=== PATIENT | male | born 1940 | race African-American/Black ===

== ENCOUNTER 2020-07-31 05:47 | Inpatient (IN) ==
[2020-07-31] MEDS ORDERED: LACTATED RINGERS 1,000 ML IV SCH (06:00)
[2020-07-31] MEDS ORDERED: cefTRIAXone 1,000 MG in SYRINGE 1 EACH IV ONE (06:30)
[2020-07-31 06:39] LABS: Basophils % 0.3 % (0.0-0.8); Eosinophils # 0.1 10*3/uL (0.0-0.87); Eosinophils % 0.7 % (0.00-10.9); Hemoglobin 14.9 GM/DL (14.0-18.0); Immature Granulocytes % 0.4 %; Immature Granulocytes Absolute 0.06 #; Lymphocytes # 1.2 10*3/uL (1.4-4.0); Lymphocytes % 7.7 % (21.2-54.2); Mean Corpuscular HGB Conc 33.9 GM/DL (32-36); Mean Corpuscular Volume 98.7 FL (87-102); Mean Platelet Volume 10.1 FL (9.6-12.0); Monocytes % 7.4 % (1.7-12.7); Neutrophils % 83.5 % (38.7-73.9); Platelet Count 165 T/CUMM (130-400); Red Blood Count 4.46 MC/CUMM (3.8-5.5); Red Cell Distribution Width 13.8 % (9.3-17.3); White Blood Count 15.1 T/CUMM (4-12)
[2020-07-31] MEDS ORDERED: MIDAZOLAM 2 MG/2 ML VIAL ONE (06:40)
[2020-07-31] MEDS ORDERED: propofoL 200 MG/20 ML VIAL IV ONE ×2 (06:40→07:40)
[2020-07-31] MEDS ORDERED: fentaNYL 100 MCG/2 ML VIAL ONE ×2 (06:40→08:00)
[2020-07-31] MEDS ORDERED: SEVOFLURANE 1 UNIT/15 MINUTE INH ONE (06:40)
[2020-07-31] MEDS ORDERED: LIDOCAINE 2% 5 ML VIAL ONE (06:40)
[2020-07-31] MEDS ORDERED: ETOMIDATE 40 MG/20 ML VIAL IV ONE (06:40)
[2020-07-31 07:04] LABS: Bilirubin,Total 1.8 MG/DL (0.2-1.0); Calcium 9.1 MG/DL (8.5-10.1); Osmolality,Calculated 273.8 MOS/KG (273-304); Potassium 3.3 MMOL/L (3.5-5.1); Total Protein 7.8 G/DL (5.0-7.5)
[2020-07-31] MEDS ORDERED: SUCCINYLCHOLINE 200 MG/10 ML VIAL ONE (07:31)
[2020-07-31] MEDS ORDERED: ONDANSETRON 4 MG/2 ML VIAL ONE (07:32)
[2020-07-31] MEDS ORDERED: PHENYLEPHRINE 1 MG/10 ML SYRINGE IV ONE (07:34)
[2020-07-31] MEDS ORDERED: ESMOLOL 100 MG/10 ML VIAL IV ONE (07:45)
[2020-07-31] MEDS ORDERED: LACTATED RINGERS 1,000 ML IV ONE (08:01)
[2020-07-31] MEDS ORDERED: ONDANSETRON 4 MG/2 ML VIAL IV PRN (08:13)
[2020-07-31] MEDS ORDERED: HYDROmorphone 2 MG/1 ML VIAL IV PRN (08:13)
[2020-07-31] MEDS ORDERED: PROMETHAZINE 25 MG/1 ML VIAL IM PRN (08:13)
[2020-07-31] MEDS ORDERED: LACTULOSE 20 GM/30 ML UDCUP PO PRN (08:13)
[2020-07-31] MEDS ORDERED: diphenhydrAMINE 50 MG/1 ML VIAL IV PRN (08:17)
[2020-07-31] MEDS ORDERED: oxyCODONE/ACETAMINOPHEN 5-325 MG TABLET PO PRN (08:18)
[2020-07-31 09:11] LABS: Calcium 8.8 MG/DL (8.5-10.1); Osmolality,Calculated 269.2 MOS/KG (273-304); Potassium 3.5 MMOL/L (3.5-5.1)
[2020-07-31] MEDS ORDERED: PHENOL 1.4% THROAT SPRAY 177 ML BOTTLE PO STA (12:03)
[2020-07-31] MEDS: DOCUSATE SODIUM 100 MG CAPSULE PO SCH ×2 (15:02→21:38)
[2020-07-31] MEDS: DORZOLAMIDE/TIMOLOL OPH SOLN 10 ML BOTTLE BOTH EYES SCH ×2 (15:02→21:39)
[2020-07-31] MEDS: ACETAMINOPHEN 325 MG TABLET PO SCH ×3 (15:02→21:39)
[2020-07-31] MEDS: OXYBUTYNIN 5 MG TABLET PO SCH ×3 (15:03→21:39)
[2020-07-31] MEDS: POTASSIUM CHLORIDE 10 MEQ TABLET PO SCH ×2 (15:03→21:39)
[2020-07-31] MEDS: MEMANTINE 10 MG TABLET PO SCH ×2 (15:03→21:39)
[2020-07-31] MEDS: SODIUM CHLOR 0.9% KCL 20 MEQ 20 MEQ/1,000 ML BAG IV SCH (15:39)
[2020-07-31] MEDS: amLODIPine 10 MG TABLET PO SCH (16:35)
[2020-07-31] MEDS: METOPROLOL SUCCINATE XL 50 MG TABLET PO SCH (16:35)
[2020-07-31] MEDS: NETARSUDIL 0.02% BOTH EYES SCH (21:39)
[2020-07-31] MEDS: LATANOPROST 0.005% OPH SOLN 2.5 ML BOTTLE BOTH EYES SCH (22:12)
[2020-08-01] MEDS: SODIUM CHLOR 0.9% KCL 20 MEQ 20 MEQ/1,000 ML BAG IV SCH (02:05)
[2020-08-01] MEDS: ACETAMINOPHEN 325 MG TABLET PO SCH ×4 (02:06→21:28)
[2020-08-01] MEDS: cefTRIAXone 1,000 MG in SYRINGE 1 EACH IV SCH (05:54)
[2020-08-01 07:05] LABS: Basophils % 0.4 % (0.0-0.8); Eosinophils # 0.1 10*3/uL (0.0-0.87); Eosinophils % 1.5 % (0.00-10.9); Hematocrit 40.1 VOL% (42.0-52.0); Hemoglobin 13.2 GM/DL (14.0-18.0); Immature Granulocytes % 0.6 %; Immature Granulocytes Absolute 0.05 #; Lymphocytes # 1.3 10*3/uL (1.4-4.0); Mean Corpuscular HGB Conc 32.9 GM/DL (32-36); Mean Corpuscular Volume 100.5 FL (87-102); Monocytes % 8.7 % (1.7-12.7); Neutrophils % 73.8 % (38.7-73.9); Platelet Count 146 T/CUMM (130-400); Red Blood Count 3.99 MC/CUMM (3.8-5.5); Red Cell Distribution Width 13.6 % (9.3-17.3); White Blood Count 8.9 T/CUMM (4-12)
[2020-08-01 07:41] LABS: Calcium 8.4 MG/DL (8.5-10.1); Osmolality,Calculated 275.5 MOS/KG (273-304); Potassium 3.7 MMOL/L (3.5-5.1)
[2020-08-01] MEDS: PANTOPRAZOLE 40 MG TABLET PO SCH (09:07)
[2020-08-01] MEDS: MEMANTINE 10 MG TABLET PO SCH ×2 (09:08→21:29)
[2020-08-01] MEDS: amLODIPine 10 MG TABLET PO SCH (09:08)
[2020-08-01] MEDS: POTASSIUM CHLORIDE 10 MEQ TABLET PO SCH ×2 (09:08→21:29)
[2020-08-01] MEDS: METOPROLOL SUCCINATE XL 50 MG TABLET PO SCH (09:08)
[2020-08-01] MEDS: DOCUSATE SODIUM 100 MG CAPSULE PO SCH ×2 (09:08→21:29)
[2020-08-01] MEDS: OXYBUTYNIN 5 MG TABLET PO SCH ×3 (09:08→21:29)
[2020-08-01] MEDS: DORZOLAMIDE/TIMOLOL OPH SOLN 10 ML BOTTLE BOTH EYES SCH ×2 (09:10→21:28)
[2020-08-01] MEDS: NETARSUDIL 0.02% BOTH EYES SCH (21:28)
[2020-08-01] MEDS: LATANOPROST 0.005% OPH SOLN 2.5 ML BOTTLE BOTH EYES SCH (21:29)
[2020-08-02] MEDS: ACETAMINOPHEN 325 MG TABLET PO SCH ×4 (02:49→21:18)
[2020-08-02] MEDS: cefTRIAXone 1,000 MG in SYRINGE 1 EACH IV SCH (05:45)
[2020-08-02 06:12] LABS: Basophils % 0.5 % (0.0-0.8); Eosinophils # 0.1 10*3/uL (0.0-0.87); Eosinophils % 1.6 % (0.00-10.9); Hematocrit 41.5 VOL% (42.0-52.0); Hemoglobin 13.9 GM/DL (14.0-18.0); Immature Granulocytes % 0.5 %; Immature Granulocytes Absolute 0.04 #; Lymphocytes # 1.2 10*3/uL (1.4-4.0); Lymphocytes % 14.7 % (21.2-54.2); Mean Corpuscular HGB Conc 33.5 GM/DL (32-36); Mean Corpuscular Volume 99.5 FL (87-102); Mean Platelet Volume 10.5 FL (9.6-12.0); Monocytes % 8.4 % (1.7-12.7); Neutrophils % 74.3 % (38.7-73.9); Platelet Count 149 T/CUMM (130-400); Red Blood Count 4.17 MC/CUMM (3.8-5.5); Red Cell Distribution Width 13.3 % (9.3-17.3)
[2020-08-02 06:36] LABS: Calcium 8.2 MG/DL (8.5-10.1); Osmolality,Calculated 273.7 MOS/KG (273-304); Potassium 3.6 MMOL/L (3.5-5.1)
[2020-08-02] MEDS: POTASSIUM CHLORIDE 10 MEQ TABLET PO SCH ×2 (08:36→21:17)
[2020-08-02] MEDS: METOPROLOL SUCCINATE XL 50 MG TABLET PO SCH (08:36)
[2020-08-02] MEDS: OXYBUTYNIN 5 MG TABLET PO SCH ×3 (08:37→21:20)
[2020-08-02] MEDS: amLODIPine 10 MG TABLET PO SCH (08:37)
[2020-08-02] MEDS: PANTOPRAZOLE 40 MG TABLET PO SCH (08:37)
[2020-08-02] MEDS: DOCUSATE SODIUM 100 MG CAPSULE PO SCH ×2 (08:37→21:18)
[2020-08-02] MEDS: DORZOLAMIDE/TIMOLOL OPH SOLN 10 ML BOTTLE BOTH EYES SCH ×2 (08:39→21:18)
[2020-08-02] MEDS: MEMANTINE 10 MG TABLET PO SCH ×2 (08:39→21:18)
[2020-08-02] MEDS: NETARSUDIL 0.02% BOTH EYES SCH (21:18)
[2020-08-02] MEDS: LATANOPROST 0.005% OPH SOLN 2.5 ML BOTTLE BOTH EYES SCH (21:19)
[2020-08-03] MEDS: ACETAMINOPHEN 325 MG TABLET PO SCH ×2 (01:43→09:14)
[2020-08-03 05:45] LABS: Basophils % 0.4 % (0.0-0.8); Eosinophils # 0.2 10*3/uL (0.0-0.87); Hematocrit 40.6 VOL% (42.0-52.0); Hemoglobin 13.5 GM/DL (14.0-18.0); Immature Granulocytes % 0.4 %; Immature Granulocytes Absolute 0.03 #; Lymphocytes # 1.3 10*3/uL (1.4-4.0); Lymphocytes % 17.2 % (21.2-54.2); Mean Corpuscular HGB Conc 33.3 GM/DL (32-36); Mean Corpuscular Volume 97.4 FL (87-102); Mean Platelet Volume 10.8 FL (9.6-12.0); Monocytes % 9.8 % (1.7-12.7); Neutrophils % 70.2 % (38.7-73.9); Platelet Count 158 T/CUMM (130-400); Red Blood Count 4.17 MC/CUMM (3.8-5.5); Red Cell Distribution Width 13.4 % (9.3-17.3); White Blood Count 7.5 T/CUMM (4-12)
[2020-08-03 06:00] LABS: Calcium 8.7 MG/DL (8.5-10.1); Osmolality,Calculated 270.8 MOS/KG (273-304); Potassium 3.5 MMOL/L (3.5-5.1)
[2020-08-03] MEDS: cefTRIAXone 1,000 MG in SYRINGE 1 EACH IV SCH (06:30)
[2020-08-03] MEDS: POTASSIUM CHLORIDE 10 MEQ TABLET PO SCH (09:13)
[2020-08-03] MEDS: MEMANTINE 10 MG TABLET PO SCH (09:13)
[2020-08-03] MEDS: DOCUSATE SODIUM 100 MG CAPSULE PO SCH (09:14)
[2020-08-03] MEDS: PANTOPRAZOLE 40 MG TABLET PO SCH (09:14)
[2020-08-03] MEDS: METOPROLOL SUCCINATE XL 50 MG TABLET PO SCH (09:14)
[2020-08-03] MEDS: OXYBUTYNIN 5 MG TABLET PO SCH (09:14)
[2020-08-03] MEDS: amLODIPine 10 MG TABLET PO SCH (09:14)
[2020-08-03] MEDS: DORZOLAMIDE/TIMOLOL OPH SOLN 10 ML BOTTLE BOTH EYES SCH (09:14)
[2020-08-03 12:17] VITALS: BP 115/76
== END 2020-08-03 13:45 | disposition home or self-care (01) | DRG 713 ==
LOC: N.OR 05:47 → N.SDSINP 05:49 → N.3E 14:34
PROVIDERS: ADMIT Surgery; ATTEND Surgery

== ENCOUNTER 2022-04-15 18:50 | Inpatient (IN) ==
[2022-04-15] MEDS ORDERED: ONDANSETRON 4 MG/2 ML VIAL IV STA ×2 (19:40)
[2022-04-15] MEDS ORDERED: SODIUM CHLORIDE 0.9% 1,000 ML IV STA (19:40)
[2022-04-15 20:51] LABS: Basophils % 0.2 % (0.0-0.8); Eosinophils % 0.1 % (0.00-10.9); Hemoglobin 17.2 GM/DL (14.0-18.0); Immature Granulocytes % 0.5 %; Immature Granulocytes Absolute 0.05 #; Lymphocytes # 0.6 10*3/uL (1.4-4.0); Lymphocytes % 5.3 % (21.2-54.2); Mean Corpuscular HGB Conc 34.4 GM/DL (32-36); Mean Corpuscular Volume 94.9 FL (87-102); Mean Platelet Volume 10.1 FL (9.6-12.0); Monocytes # 0.5 10*3/uL (0.11-0.8); Neutrophils % 88.9 % (38.7-73.9); Platelet Count 175 T/CUMM (130-400); Red Blood Count 5.27 MC/CUMM (3.8-5.5); Red Cell Distribution Width 13.3 % (9.3-17.3); White Blood Count 10.3 T/CUMM (4-12)
[2022-04-15 21:27] LABS: Bacteria,Urine Occasional /HPF (Few); RBC,Urine <1 /HPF (0-4); Urine Appearance Clear (Clear); Urine Color Yellow (Yellow); Urine Specific Gravity 1.015 (1.001-1.035)
[2022-04-15 21:28] LABS: Bilirubin,Urine Negative (Negative); Blood, Urine Negative (Negative); Glucose,Urine (UA) Negative (Negative); Ketones,Urine Negative (Negative); Nitrite,Urine Negative (Negative); Protein,Urine Negative (Negative)
[2022-04-15 21:59] LABS: Alanine Aminotransferase 131 U/L (16-61); Albumin 3.8 G/DL (3.4-5.0); Alkaline Phosphatase 199 U/L (45-117); Amylase > 1300 U/L (25-115); Aspartate Amino Transferase 384 U/L (0-37); Blood Urea Nitrogen 12 MG/DL (7-18); Calcium 9.4 MG/DL (8.5-10.1); Carbon Dioxide 26 MMOL/L (21-32); Chloride 102 MMOL/L (98-107); Glucose 130 MG/DL (74-106); Osmolality,Calculated 274.8 MOS/KG (273-304); Sodium 137 MMOL/L (136-145); Total Protein 7.6 G/DL (6.4-8.2)
[2022-04-16] MEDS ORDERED: MORPHINE 2 MG/1 ML SYRINGE IV STA (00:28)
[2022-04-16] MEDS ORDERED: ONDANSETRON 4 MG/2 ML VIAL IV ONE (00:28)
[2022-04-16] MEDS ORDERED: PIPERACILLIN/TAZOBACTAM 3,375 MG in SODIUM CHLORIDE 0.9% 100 ML IV STA (00:31)
[2022-04-16] MEDS ORDERED: diphenhydrAMINE CAP 25 MG CAPSULE PO PRN (00:50)
[2022-04-16] MEDS ORDERED: hydrALAZINE 20 MG/1 ML VIAL IV PRN (00:50)
[2022-04-16] MEDS ORDERED: ALBUTEROL/IPRATROPIUM 3 ML NEB RESP TX PRN (00:50)
[2022-04-16] MEDS ORDERED: ONDANSETRON 4 MG/2 ML VIAL IV PRN (00:50)
[2022-04-16] MEDS ORDERED: PROMETHAZINE 25 MG/1 ML VIAL IM PRN (00:50)
[2022-04-16] MEDS ORDERED: guaiFENesin/DM ER 600-30 MG TABLET PO PRN (00:50)
[2022-04-16] MEDS ORDERED: NICOTINE 21 MG/24 HR PATCH TRANSDERM PRN (00:50)
[2022-04-16] MEDS: DEXTROSE 5% NACL 0.9% 1,000 ML IV SCH ×2 (03:13→17:11)
[2022-04-16 04:39] LABS: Hepatitis B Core IgM Quant 0.05 Index; Hepatitis B Surface Ag Quant 0.18 Index; Hepatitis B Surface Ag Result Non-Reactive (NonReactive); Hepatitis C Virus Ab Quant 0.02 Index; Hepatitis C Virus Ab Result Non-Reactive (NonReactive)
[2022-04-16 06:25] LABS: Basophils % 0.1 % (0.0-0.8); Hemoglobin 16.7 GM/DL (14.0-18.0); Immature Granulocytes % 0.5 %; Immature Granulocytes Absolute 0.07 #; Lymphocytes # 0.6 10*3/uL (1.4-4.0); Lymphocytes % 4.4 % (21.2-54.2); Mean Corpuscular HGB Conc 34.1 GM/DL (32-36); Mean Platelet Volume 10.2 FL (9.6-12.0); Monocytes # 0.8 10*3/uL (0.11-0.8); Monocytes % 6.1 % (1.7-12.7); Neutrophils % 88.9 % (38.7-73.9); Platelet Count 163 T/CUMM (130-400); Red Blood Count 5.16 MC/CUMM (3.8-5.5); Red Cell Distribution Width 13.5 % (9.3-17.3); White Blood Count 12.9 T/CUMM (4-12)
[2022-04-16 06:35] LABS: INR 1.1; PT Patient Result 12.5 SECS (10.1-12.1); Partial Thromboplastin Time 30.1 SECS (23.7-32.9)
[2022-04-16 06:45] LABS: Albumin 3.2 G/DL (3.4-5.0); Bilirubin,Total 6.8 MG/DL (0.20-1.00); Calcium 8.9 MG/DL (8.5-10.1); Osmolality,Calculated 275.8 MOS/KG (273-304); Potassium 3.5 MMOL/L (3.5-5.1); Total Protein 7.2 G/DL (6.4-8.2)
[2022-04-16 06:47] LABS: Band Neutrophils 17 % (0-10); Lymphocytes 8 % (20-55); Total Cells Counted 100
[2022-04-16 06:48] LABS: Macrocytosis 1+; Platelet Estimate Normal
[2022-04-16] MEDS: FOLIC ACID 1 MG TABLET PO SCH ×2 (09:03→20:36)
[2022-04-16] MEDS: MULTIVITAMIN (CENTRUM) TABLET PO SCH (09:03)
[2022-04-16] MEDS: THIAMINE 100 MG TABLET PO SCH ×2 (09:03→20:36)
[2022-04-16] MEDS: PANTOPRAZOLE 40 MG VIAL IV SCH (09:08)
[2022-04-16] MEDS: PIPERACILLIN/TAZOBACTAM 3,375 MG in SODIUM CHLORIDE 0.9% 100 ML IV SCH ×2 (09:08→17:11)
[2022-04-17] MEDS: PIPERACILLIN/TAZOBACTAM 3,375 MG in SODIUM CHLORIDE 0.9% 100 ML IV SCH ×3 (01:15→16:11)
[2022-04-17 02:16] LABS: Basophils % 0.3 % (0.0-0.8); Eosinophils # 0.2 10*3/uL (0.0-0.87); Eosinophils % 1.5 % (0.00-10.9); Hematocrit 42.9 VOL% (42.0-52.0); Hemoglobin 14.8 GM/DL (14.0-18.0); Immature Granulocytes % 0.5 %; Immature Granulocytes Absolute 0.05 #; Lymphocytes # 0.8 10*3/uL (1.4-4.0); Lymphocytes % 7.8 % (21.2-54.2); Mean Corpuscular HGB Conc 34.5 GM/DL (32-36); Mean Corpuscular Volume 93.9 FL (87-102); Mean Platelet Volume 10.1 FL (9.6-12.0); Monocytes # 0.8 10*3/uL (0.11-0.8); Monocytes % 7.9 % (1.7-12.7); Platelet Count 138 T/CUMM (130-400); Red Blood Count 4.57 MC/CUMM (3.8-5.5); Red Cell Distribution Width 13.6 % (9.3-17.3); White Blood Count 9.8 T/CUMM (4-12)
[2022-04-17 02:32] LABS: Osmolality,Calculated 282.4 MOS/KG (273-304); Phosphorous 2.7 MG/DL (2.5-4.9)
[2022-04-17 03:06] LABS: Albumin 2.7 G/DL (3.4-5.0); Bilirubin,Direct 2.05 MG/DL (0.0-0.20); Bilirubin,Indirect 1.6 MG/DL (0.0-1.0); Bilirubin,Total 3.6 MG/DL (0.20-1.00); Total Protein 5.6 G/DL (6.4-8.2)
[2022-04-17] MEDS: DEXTROSE 5% NACL 0.9% 1,000 ML IV SCH ×2 (05:33→21:23)
[2022-04-17] MEDS ORDERED: POTASSIUM CHLORIDE 20 MEQ TABLET PO ONE (06:26)
[2022-04-17] MEDS ORDERED: MAGNESIUM SULF RIDER 2 GM/50 ML PREMIX IV ONE (06:26)
[2022-04-17] MEDS: MULTIVITAMIN (CENTRUM) TABLET PO SCH (08:33)
[2022-04-17] MEDS: PANTOPRAZOLE 40 MG VIAL IV SCH (08:33)
[2022-04-17] MEDS: FOLIC ACID 1 MG TABLET PO SCH ×2 (08:33→21:23)
[2022-04-17] MEDS: THIAMINE 100 MG TABLET PO SCH ×2 (08:33→21:23)
[2022-04-17] MEDS: COLCHICINE 0.6 MG CAPSULE PO SCH (21:23)
[2022-04-17] MEDS: MORPHINE 2 MG/1 ML SYRINGE IV PRN (21:49)
[2022-04-18] MEDS: PIPERACILLIN/TAZOBACTAM 3,375 MG in SODIUM CHLORIDE 0.9% 100 ML IV SCH ×3 (01:14→16:47)
[2022-04-18 06:06] LABS: Albumin 2.4 G/DL (3.4-5.0); Bilirubin,Total 2.1 MG/DL (0.20-1.00); Calcium 8.4 MG/DL (8.5-10.1); Osmolality,Calculated 278.4 MOS/KG (273-304); Potassium 3.5 MMOL/L (3.5-5.1); Total Protein 5.9 G/DL (6.4-8.2)
[2022-04-18] MEDS: FOLIC ACID 1 MG TABLET PO SCH ×2 (08:56→20:04)
[2022-04-18] MEDS: PANTOPRAZOLE 40 MG VIAL IV SCH (08:57)
[2022-04-18] MEDS: COLCHICINE 0.6 MG CAPSULE PO SCH ×2 (08:57→20:05)
[2022-04-18] MEDS: THIAMINE 100 MG TABLET PO SCH ×2 (08:57→20:05)
[2022-04-18] MEDS: MULTIVITAMIN (CENTRUM) TABLET PO SCH (08:57)
[2022-04-18] MEDS: DEXTROSE 5% NACL 0.9% 1,000 ML IV SCH (11:29)
[2022-04-18] MEDS: ALBUTEROL 2 MG TABLET PO SCH ×2 (14:25→20:05)
[2022-04-18] MEDS: MORPHINE 2 MG/1 ML SYRINGE IV PRN (23:45)
[2022-04-19] MEDS: DEXTROSE 5% NACL 0.9% 1,000 ML IV SCH ×2 (00:05→14:10)
[2022-04-19] MEDS: PIPERACILLIN/TAZOBACTAM 3,375 MG in SODIUM CHLORIDE 0.9% 100 ML IV SCH ×3 (00:05→17:30)
[2022-04-19] MEDS: ALBUTEROL 2 MG TABLET PO SCH ×4 (02:46→20:42)
[2022-04-19] MEDS: MORPHINE 2 MG/1 ML SYRINGE IV PRN ×2 (03:38→17:37)
[2022-04-19] MEDS ORDERED: INDOCYANINE GREEN 25 MG VIAL IV ONE (07:00)
[2022-04-19 07:13] LABS: Basophils % 0.2 % (0.0-0.8); Eosinophils % 0.3 % (0.00-10.9); Hematocrit 44.5 VOL% (42.0-52.0); Immature Granulocytes % 0.4 %; Immature Granulocytes Absolute 0.04 #; Lymphocytes # 0.8 10*3/uL (1.4-4.0); Lymphocytes % 8.2 % (21.2-54.2); Mean Corpuscular HGB Conc 33.7 GM/DL (32-36); Mean Corpuscular Volume 95.9 FL (87-102); Mean Platelet Volume 10.8 FL (9.6-12.0); Monocytes # 0.9 10*3/uL (0.11-0.8); Monocytes % 9.6 % (1.7-12.7); Neutrophils % 81.3 % (38.7-73.9); Platelet Count 163 T/CUMM (130-400); Red Blood Count 4.64 MC/CUMM (3.8-5.5); Red Cell Distribution Width 13.8 % (9.3-17.3); White Blood Count 9.3 T/CUMM (4-12)
[2022-04-19 07:52] LABS: Albumin 2.7 G/DL (3.4-5.0); Bilirubin,Total 1.5 MG/DL (0.20-1.00); Calcium 8.8 MG/DL (8.5-10.1); Osmolality,Calculated 276.5 MOS/KG (273-304); Potassium 3.5 MMOL/L (3.5-5.1); Total Protein 6.8 G/DL (6.4-8.2)
[2022-04-19] MEDS: FOLIC ACID 1 MG TABLET PO SCH ×2 (08:10→20:41)
[2022-04-19] MEDS: MULTIVITAMIN (CENTRUM) TABLET PO SCH (08:10)
[2022-04-19] MEDS: COLCHICINE 0.6 MG CAPSULE PO SCH (08:10)
[2022-04-19] MEDS: THIAMINE 100 MG TABLET PO SCH ×2 (08:10→20:41)
[2022-04-19] MEDS ORDERED: KETAMINE 500 MG/10 ML VIAL ONE (09:45)
[2022-04-19] MEDS ORDERED: ROCURONIUM 50 MG/5 ML VIAL IV ONE (09:45)
[2022-04-19] MEDS ORDERED: fentaNYL 100 MCG/2 ML VIAL ONE (09:45)
[2022-04-19] MEDS ORDERED: LIDOCAINE 2% 5 ML VIAL ONE (09:45)
[2022-04-19] MEDS ORDERED: ONDANSETRON 4 MG/2 ML VIAL ONE (09:45)
[2022-04-19] MEDS ORDERED: propofoL 200 MG/20 ML VIAL IV ONE (09:45)
[2022-04-19] MEDS ORDERED: DESFLURANE 1 UNIT/15 MINUTE INH ONE (09:45)
[2022-04-19] MEDS ORDERED: TISSUE ADHESIVE 1 EACH APPLICATOR TOP ONE (09:48)
[2022-04-19] MEDS ORDERED: ePHEDrine 50 MG/ML VIAL ONE (10:50)
[2022-04-19] MEDS ORDERED: PHENYLEPHRINE 1 MG/10 ML SYRINGE IV ONE (11:04)
[2022-04-19] MEDS ORDERED: NEOSTIGMINE 10 MG/10 ML VIAL ONE (11:05)
[2022-04-19] MEDS ORDERED: GLYCOPYRROLATE 0.4 MG/2 ML VIAL ONE (11:05)
[2022-04-19] MEDS ORDERED: ESMOLOL 100 MG/10 ML VIAL IV ONE (11:26)
[2022-04-19] MEDS ORDERED: PHENYLEPHRINE 10 MG/1 ML VIAL IV ONE (11:28)
[2022-04-19] MEDS ORDERED: SUGAMMADEX 200 MG/2 ML VIAL IV ONE (11:46)
[2022-04-19] MEDS: amLODIPine 5 MG TABLET PO SCH (14:10)
[2022-04-19] MEDS: MEMANTINE 10 MG TABLET PO SCH ×2 (14:10→20:41)
[2022-04-19] MEDS: PANTOPRAZOLE 40 MG VIAL IV SCH (14:10)
[2022-04-19] MEDS: LATANOPROST 0.005% OPH SOLN 2.5 ML BOTTLE BOTH EYES SCH (20:41)
[2022-04-19] MEDS: NETARSUDIL 0.02% BOTH EYES SCH (20:42)
[2022-04-20] MEDS: PIPERACILLIN/TAZOBACTAM 3,375 MG in SODIUM CHLORIDE 0.9% 100 ML IV SCH ×3 (00:16→17:35)
[2022-04-20] MEDS: ALBUTEROL 2 MG TABLET PO SCH ×4 (01:22→23:00)
[2022-04-20] MEDS: MORPHINE 2 MG/1 ML SYRINGE IV PRN (04:39)
[2022-04-20] MEDS: DEXTROSE 5% NACL 0.9% 1,000 ML IV SCH (04:40)
[2022-04-20 05:22] LABS: Basophils % 0.2 % (0.0-0.8); Eosinophils # 0.1 10*3/uL (0.0-0.87); Eosinophils % 0.6 % (0.00-10.9); Hematocrit 44.3 VOL% (42.0-52.0); Immature Granulocytes % 0.4 %; Immature Granulocytes Absolute 0.04 #; Lymphocytes % 9.7 % (21.2-54.2); Mean Corpuscular HGB Conc 33.9 GM/DL (32-36); Mean Corpuscular Volume 96.3 FL (87-102); Mean Platelet Volume 10.8 FL (9.6-12.0); Monocytes # 1.5 10*3/uL (0.11-0.8); Monocytes % 14.2 % (1.7-12.7); Neutrophils % 74.9 % (38.7-73.9); Platelet Count 153 T/CUMM (130-400); Red Cell Distribution Width 13.8 % (9.3-17.3); White Blood Count 10.2 T/CUMM (4-12)
[2022-04-20 05:51] LABS: Albumin 2.5 G/DL (3.4-5.0); Bilirubin,Total 4.2 MG/DL (0.20-1.00); Calcium 8.8 MG/DL (8.5-10.1); Potassium 3.2 MMOL/L (3.5-5.1); Total Protein 6.4 G/DL (6.4-8.2)
[2022-04-20] MEDS ORDERED: POTASSIUM CHLORIDE 20 MEQ TABLET PO ONE (08:45)
[2022-04-20] MEDS: PANTOPRAZOLE 40 MG VIAL IV SCH (09:12)
[2022-04-20] MEDS: MEMANTINE 10 MG TABLET PO SCH ×2 (09:12→21:12)
[2022-04-20] MEDS: amLODIPine 5 MG TABLET PO SCH (09:12)
[2022-04-20] MEDS: ASPIRIN EC 81 MG TABLET PO SCH (09:13)
[2022-04-20] MEDS: THIAMINE 100 MG TABLET PO SCH ×2 (09:13→21:12)
[2022-04-20] MEDS: FOLIC ACID 1 MG TABLET PO SCH ×2 (09:13→21:12)
[2022-04-20] MEDS: MULTIVITAMIN (CENTRUM) TABLET PO SCH (09:13)
[2022-04-20] MEDS: NETARSUDIL 0.02% BOTH EYES SCH (21:17)
[2022-04-20] MEDS: LATANOPROST 0.005% OPH SOLN 2.5 ML BOTTLE BOTH EYES SCH (21:18)
[2022-04-21] MEDS: PIPERACILLIN/TAZOBACTAM 3,375 MG in SODIUM CHLORIDE 0.9% 100 ML IV SCH ×3 (03:34→22:49)
[2022-04-21] MEDS: ALBUTEROL 2 MG TABLET PO SCH ×3 (03:35→21:22)
[2022-04-21 04:51] LABS: Basophils % 0.3 % (0.0-0.8); Eosinophils # 0.2 10*3/uL (0.0-0.87); Eosinophils % 2.4 % (0.00-10.9); Hematocrit 41.7 VOL% (42.0-52.0); Immature Granulocytes % 0.3 %; Immature Granulocytes Absolute 0.02 #; Lymphocytes # 1.4 10*3/uL (1.4-4.0); Lymphocytes % 17.5 % (21.2-54.2); Mean Corpuscular HGB Conc 33.6 GM/DL (32-36); Mean Corpuscular Volume 96.5 FL (87-102); Mean Platelet Volume 10.8 FL (9.6-12.0); Monocytes # 0.9 10*3/uL (0.11-0.8); Monocytes % 11.5 % (1.7-12.7); Platelet Count 160 T/CUMM (130-400); Red Blood Count 4.32 MC/CUMM (3.8-5.5); Red Cell Distribution Width 13.9 % (9.3-17.3); White Blood Count 7.8 T/CUMM (4-12)
[2022-04-21 05:24] LABS: Albumin 2.4 G/DL (3.4-5.0); Calcium 8.6 MG/DL (8.5-10.1); Total Protein 5.9 G/DL (6.4-8.2)
[2022-04-21] MEDS ORDERED: INDOMETHACIN SUPP 50 MG SUPP RECTAL ONE (10:09)
[2022-04-21] MEDS: POTASSIUM CHLORIDE RIDER 10 MEQ/100 ML PREMIX IV SCH ×4 (10:11→19:03)
[2022-04-21 11:05] LABS: INR 1.1; PT Patient Result 12.1 SECS (10.1-12.1)
[2022-04-21] MEDS ORDERED: POTASSIUM CHLORIDE 20 MEQ TABLET PO ONE (12:12)
[2022-04-21] MEDS ORDERED: HEPARIN/NACL 0.9% 2 UNITS/ML 1,000 UNIT/500 ML BAG IV ONE (12:49)
[2022-04-21] MEDS ORDERED: PHENYLEPHRINE 10 MG/1 ML VIAL IV ONE (12:49)
[2022-04-21] MEDS ORDERED: ETOMIDATE 40 MG/20 ML VIAL IV ONE (12:55)
[2022-04-21] MEDS ORDERED: fentaNYL 100 MCG/2 ML VIAL ONE (12:55)
[2022-04-21] MEDS ORDERED: LIDOCAINE 2% 5 ML VIAL ONE (12:55)
[2022-04-21] MEDS ORDERED: propofoL 200 MG/20 ML VIAL IV ONE (12:55)
[2022-04-21] MEDS ORDERED: EPINEPHrine 1 MG/ML VIAL ONE (12:58)
[2022-04-21 13:03] LABS: Bilirubin,Urine Negative (Negative); Blood, Urine Trace mg/dL (Negative); Glucose,Urine (UA) Negative (Negative); Ketones,Urine Negative (Negative); Nitrite,Urine Negative (Negative); Protein,Urine Negative (Negative); Urine Appearance Clear (Clear); Urine Color Yellow (Yellow); Urine pH 7.5 (4.5-8.0)
[2022-04-21 13:08] LABS: Squamous Epithelial Cell,Urine Occasional /HPF (0-10)
[2022-04-21] MEDS ORDERED: LIDOCAINE 1% 5 ML VIAL ONE (13:28)
[2022-04-21] MEDS: LACTATED RINGERS 1,000 ML IV SCH ×2 (14:15→15:09)
[2022-04-21 14:17] LABS: Arterial Bicarbonate iSTAT 24.8 MMOL/L (20-26); Arterial pH iSTAT 7.465 (7.35-7.45)
[2022-04-21] MEDS ORDERED: ESMOLOL 100 MG/10 ML VIAL IV ONE (14:18)
[2022-04-21] MEDS ORDERED: DEXAMETHASONE 4 MG/1 ML VIAL ONE (14:55)
[2022-04-21] MEDS ORDERED: SUGAMMADEX 200 MG/2 ML VIAL IV ONE (15:09)
[2022-04-21] MEDS ORDERED: LACTATED RINGERS 1,000 ML IV ONE (15:27)
[2022-04-21] MEDS ORDERED: SEVOFLURANE 1 UNIT/15 MINUTE INH ONE (15:27)
[2022-04-21] MEDS: MULTIVITAMIN (CENTRUM) TABLET PO SCH (16:48)
[2022-04-21] MEDS: FOLIC ACID 1 MG TABLET PO SCH ×2 (16:48→21:22)
[2022-04-21] MEDS: ASPIRIN EC 81 MG TABLET PO SCH (16:48)
[2022-04-21] MEDS: PANTOPRAZOLE 40 MG VIAL IV SCH (16:49)
[2022-04-21] MEDS: amLODIPine 5 MG TABLET PO SCH (16:49)
[2022-04-21] MEDS: MEMANTINE 10 MG TABLET PO SCH ×2 (16:49→21:23)
[2022-04-21] MEDS: THIAMINE 100 MG TABLET PO SCH ×2 (16:49→21:23)
[2022-04-21] MEDS ORDERED: PHENOL 1.4% THROAT SPRAY 177 ML BOTTLE PO PRN (21:04)
[2022-04-21] MEDS: LATANOPROST 0.005% OPH SOLN 2.5 ML BOTTLE BOTH EYES SCH (22:44)
[2022-04-21] MEDS: NETARSUDIL 0.02% BOTH EYES SCH (22:44)
[2022-04-22] MEDS: ALBUTEROL 2 MG TABLET PO SCH ×2 (01:57→21:02)
[2022-04-22] MEDS: PIPERACILLIN/TAZOBACTAM 3,375 MG in SODIUM CHLORIDE 0.9% 100 ML IV SCH ×3 (04:32→21:01)
[2022-04-22 05:19] LABS: Hematocrit 42.1 VOL% (42.0-52.0); Hemoglobin 13.9 GM/DL (14.0-18.0); Immature Granulocytes % 0.8 %; Immature Granulocytes Absolute 0.05 #; Lymphocytes # 0.5 10*3/uL (1.4-4.0); Mean Platelet Volume 10.7 FL (9.6-12.0); Monocytes # 0.4 10*3/uL (0.11-0.8); Monocytes % 6.9 % (1.7-12.7); Neutrophils % 83.3 % (38.7-73.9); Platelet Count 191 T/CUMM (130-400); Red Blood Count 4.34 MC/CUMM (3.8-5.5); Red Cell Distribution Width 13.8 % (9.3-17.3); White Blood Count 5.9 T/CUMM (4-12)
[2022-04-22 05:45] LABS: Albumin 2.5 G/DL (3.4-5.0); Bilirubin,Direct 1.08 MG/DL (0.0-0.20); Bilirubin,Indirect 1.1 MG/DL (0.0-1.0); Bilirubin,Total 2.2 MG/DL (0.20-1.00); Total Protein 6.4 G/DL (6.4-8.2)
[2022-04-22 05:47] LABS: Albumin 2.6 G/DL (3.4-5.0); Bilirubin,Total 2.2 MG/DL (0.20-1.00); Calcium 8.4 MG/DL (8.5-10.1); Osmolality,Calculated 281.4 MOS/KG (273-304); Potassium 3.6 MMOL/L (3.5-5.1); Total Protein 5.8 G/DL (6.4-8.2)
[2022-04-22 05:58] LABS: Calcium 8.3 MG/DL (8.5-10.1); Osmolality,Calculated 284.1 MOS/KG (273-304); Potassium 3.7 MMOL/L (3.5-5.1)
[2022-04-22] MEDS: MULTIVITAMIN (CENTRUM) TABLET PO SCH (08:55)
[2022-04-22] MEDS: ASPIRIN EC 81 MG TABLET PO SCH (08:55)
[2022-04-22] MEDS: amLODIPine 5 MG TABLET PO SCH (08:55)
[2022-04-22] MEDS: FOLIC ACID 1 MG TABLET PO SCH ×2 (08:55→21:01)
[2022-04-22] MEDS: MEMANTINE 10 MG TABLET PO SCH ×2 (08:55→21:01)
[2022-04-22] MEDS: THIAMINE 100 MG TABLET PO SCH ×2 (08:56→21:01)
[2022-04-22] MEDS: PANTOPRAZOLE 40 MG VIAL IV SCH (08:56)
[2022-04-22] MEDS: DEXTROSE 5% NACL 0.9% 1,000 ML IV SCH (10:51)
[2022-04-22] MEDS: LACTATED RINGERS 1,000 ML IV SCH (12:51)
[2022-04-22] MEDS: ENOXAPARIN 40 MG/0.4 ML SYRINGE SUBCUT SCH (13:17)
[2022-04-22] MEDS: LATANOPROST 0.005% OPH SOLN 2.5 ML BOTTLE BOTH EYES SCH (22:00)
[2022-04-23] MEDS: NETARSUDIL 0.02% BOTH EYES SCH ×2 (01:21→21:17)
[2022-04-23] MEDS: PIPERACILLIN/TAZOBACTAM 3,375 MG in SODIUM CHLORIDE 0.9% 100 ML IV SCH ×3 (04:25→20:20)
[2022-04-23 05:49] LABS: Basophils % 0.5 % (0.0-0.8); Eosinophils # 0.1 10*3/uL (0.0-0.87); Hematocrit 39.3 VOL% (42.0-52.0); Hemoglobin 13.3 GM/DL (14.0-18.0); Immature Granulocytes % 0.6 %; Immature Granulocytes Absolute 0.04 #; Lymphocytes # 1.4 10*3/uL (1.4-4.0); Mean Corpuscular HGB Conc 33.8 GM/DL (32-36); Mean Corpuscular Volume 96.3 FL (87-102); Mean Platelet Volume 10.2 FL (9.6-12.0); Monocytes # 0.6 10*3/uL (0.11-0.8); Neutrophils % 65.9 % (38.7-73.9); Platelet Count 204 T/CUMM (130-400); Red Blood Count 4.08 MC/CUMM (3.8-5.5); Red Cell Distribution Width 13.8 % (9.3-17.3); White Blood Count 6.4 T/CUMM (4-12)
[2022-04-23 06:55] LABS: Calcium 8.1 MG/DL (8.5-10.1); Osmolality,Calculated 283.1 MOS/KG (273-304)
[2022-04-23] MEDS: ALBUTEROL 2 MG TABLET PO SCH (07:06)
[2022-04-23 07:13] LABS: Albumin 2.4 G/DL (3.4-5.0); Bilirubin,Total 1.7 MG/DL (0.20-1.00); Calcium 8.2 MG/DL (8.5-10.1); Osmolality,Calculated 286.8 MOS/KG (273-304); Potassium 3.1 MMOL/L (3.5-5.1)
[2022-04-23] MEDS ORDERED: POTASSIUM CHLORIDE 20 MEQ TABLET PO ONE ×3 (08:00→16:26)
[2022-04-23] MEDS: MEMANTINE 10 MG TABLET PO SCH ×2 (08:40→20:19)
[2022-04-23] MEDS: FOLIC ACID 1 MG TABLET PO SCH ×2 (08:40→20:19)
[2022-04-23] MEDS: MULTIVITAMIN (CENTRUM) TABLET PO SCH (08:40)
[2022-04-23] MEDS: amLODIPine 5 MG TABLET PO SCH (08:40)
[2022-04-23] MEDS: ASPIRIN EC 81 MG TABLET PO SCH (08:40)
[2022-04-23] MEDS: THIAMINE 100 MG TABLET PO SCH ×2 (08:40→20:19)
[2022-04-23] MEDS: PANTOPRAZOLE 40 MG TABLET PO SCH (08:40)
[2022-04-23] MEDS: ENOXAPARIN 40 MG/0.4 ML SYRINGE SUBCUT SCH (08:41)
[2022-04-23] MEDS: LATANOPROST 0.005% OPH SOLN 2.5 ML BOTTLE BOTH EYES SCH (21:18)
[2022-04-24 06:05] LABS: Basophils % 0.4 % (0.0-0.8); Eosinophils # 0.2 10*3/uL (0.0-0.87); Eosinophils % 2.2 % (0.00-10.9); Hematocrit 39.2 VOL% (42.0-52.0); Hemoglobin 13.1 GM/DL (14.0-18.0); Immature Granulocytes % 0.4 %; Immature Granulocytes Absolute 0.03 #; Lymphocytes # 1.3 10*3/uL (1.4-4.0); Lymphocytes % 19.1 % (21.2-54.2); Mean Corpuscular HGB Conc 33.4 GM/DL (32-36); Mean Corpuscular Volume 97.3 FL (87-102); Mean Platelet Volume 10.5 FL (9.6-12.0); Monocytes # 0.7 10*3/uL (0.11-0.8); Monocytes % 9.6 % (1.7-12.7); Neutrophils % 68.3 % (38.7-73.9); Platelet Count 218 T/CUMM (130-400); Red Blood Count 4.03 MC/CUMM (3.8-5.5); Red Cell Distribution Width 14.2 % (9.3-17.3); White Blood Count 6.9 T/CUMM (4-12)
[2022-04-24 06:38] LABS: Calcium 8.2 MG/DL (8.5-10.1); Osmolality,Calculated 286.7 MOS/KG (273-304); Potassium 3.9 MMOL/L (3.5-5.1)
[2022-04-24 06:40] LABS: Albumin 2.5 G/DL (3.4-5.0); Bilirubin,Total 1.5 MG/DL (0.20-1.00); Calcium 8.3 MG/DL (8.5-10.1); Potassium 3.6 MMOL/L (3.5-5.1); Total Protein 5.9 G/DL (6.4-8.2)
[2022-04-24] MEDS: MULTIVITAMIN (CENTRUM) TABLET PO SCH (08:15)
[2022-04-24] MEDS: MEMANTINE 10 MG TABLET PO SCH ×2 (08:15→20:14)
[2022-04-24] MEDS: ASPIRIN EC 81 MG TABLET PO SCH (08:15)
[2022-04-24] MEDS: THIAMINE 100 MG TABLET PO SCH ×2 (08:16→20:14)
[2022-04-24] MEDS: PANTOPRAZOLE 40 MG TABLET PO SCH (08:16)
[2022-04-24] MEDS: amLODIPine 5 MG TABLET PO SCH (08:16)
[2022-04-24] MEDS: ENOXAPARIN 40 MG/0.4 ML SYRINGE SUBCUT SCH (08:16)
[2022-04-24] MEDS: FOLIC ACID 1 MG TABLET PO SCH ×2 (08:16→20:14)
[2022-04-24] MEDS: LATANOPROST 0.005% OPH SOLN 2.5 ML BOTTLE BOTH EYES SCH (20:14)
[2022-04-24] MEDS: NETARSUDIL 0.02% BOTH EYES SCH (22:02)
[2022-04-25 05:20] LABS: Basophils % 0.4 % (0.0-0.8); Eosinophils # 0.1 10*3/uL (0.0-0.87); Eosinophils % 1.5 % (0.00-10.9); Hematocrit 40.5 VOL% (42.0-52.0); Hemoglobin 13.8 GM/DL (14.0-18.0); Immature Granulocytes % 0.5 %; Immature Granulocytes Absolute 0.04 #; Lymphocytes # 1.3 10*3/uL (1.4-4.0); Lymphocytes % 15.9 % (21.2-54.2); Mean Corpuscular HGB Conc 34.1 GM/DL (32-36); Mean Corpuscular Volume 96.4 FL (87-102); Mean Platelet Volume 10.5 FL (9.6-12.0); Monocytes # 0.5 10*3/uL (0.11-0.8); Monocytes % 6.5 % (1.7-12.7); Neutrophils % 75.2 % (38.7-73.9); Platelet Count 232 T/CUMM (130-400); Red Cell Distribution Width 13.9 % (9.3-17.3); White Blood Count 7.9 T/CUMM (4-12)
[2022-04-25 06:04] LABS: Albumin 2.6 G/DL (3.4-5.0); Bilirubin,Total 1.3 MG/DL (0.20-1.00); Calcium 8.7 MG/DL (8.5-10.1); Osmolality,Calculated 281.1 MOS/KG (273-304); Potassium 3.8 MMOL/L (3.5-5.1); Total Protein 6.1 G/DL (6.4-8.2)
[2022-04-25] MEDS: FOLIC ACID 1 MG TABLET PO SCH ×2 (08:17→21:05)
[2022-04-25] MEDS: THIAMINE 100 MG TABLET PO SCH ×2 (08:18→21:05)
[2022-04-25] MEDS: ASPIRIN EC 81 MG TABLET PO SCH (08:18)
[2022-04-25] MEDS: ALBUTEROL 2 MG TABLET PO SCH ×4 (08:18→17:31)
[2022-04-25] MEDS: MEMANTINE 10 MG TABLET PO SCH ×2 (08:18→21:05)
[2022-04-25] MEDS: PANTOPRAZOLE 40 MG TABLET PO SCH (08:18)
[2022-04-25] MEDS: MULTIVITAMIN (CENTRUM) TABLET PO SCH (08:18)
[2022-04-25] MEDS: amLODIPine 5 MG TABLET PO SCH (08:18)
[2022-04-25] MEDS: ENOXAPARIN 40 MG/0.4 ML SYRINGE SUBCUT SCH (08:19)
[2022-04-25] MEDS: LATANOPROST 0.005% OPH SOLN 2.5 ML BOTTLE BOTH EYES SCH (21:05)
[2022-04-25] MEDS: NETARSUDIL 0.02% BOTH EYES SCH (22:07)
[2022-04-26 06:14] LABS: Basophils % 0.4 % (0.0-0.8); Eosinophils # 0.2 10*3/uL (0.0-0.87); Eosinophils % 1.7 % (0.00-10.9); Hematocrit 41.2 VOL% (42.0-52.0); Hemoglobin 13.7 GM/DL (14.0-18.0); Immature Granulocytes % 0.4 %; Immature Granulocytes Absolute 0.04 #; Lymphocytes # 1.4 10*3/uL (1.4-4.0); Lymphocytes % 14.2 % (21.2-54.2); Mean Corpuscular HGB Conc 33.3 GM/DL (32-36); Mean Corpuscular Volume 96.3 FL (87-102); Mean Platelet Volume 10.7 FL (9.6-12.0); Monocytes # 0.5 10*3/uL (0.11-0.8); Monocytes % 5.1 % (1.7-12.7); Neutrophils % 78.2 % (38.7-73.9); Platelet Count 251 T/CUMM (130-400); Red Blood Count 4.28 MC/CUMM (3.8-5.5); Red Cell Distribution Width 13.9 % (9.3-17.3); White Blood Count 9.6 T/CUMM (4-12)
[2022-04-26 06:38] LABS: Albumin 2.6 G/DL (3.4-5.0); Bilirubin,Total 1.3 MG/DL (0.20-1.00); Calcium 8.8 MG/DL (8.5-10.1); Osmolality,Calculated 280.3 MOS/KG (273-304); Potassium 3.4 MMOL/L (3.5-5.1); Total Protein 6.1 G/DL (6.4-8.2)
[2022-04-26] MEDS ORDERED: POTASSIUM CHLORIDE 20 MEQ TABLET PO ONE (07:52)
[2022-04-26] MEDS: PANTOPRAZOLE 40 MG TABLET PO SCH (08:34)
[2022-04-26] MEDS: ENOXAPARIN 40 MG/0.4 ML SYRINGE SUBCUT SCH (08:34)
[2022-04-26] MEDS: MULTIVITAMIN (CENTRUM) TABLET PO SCH (08:34)
[2022-04-26] MEDS: FOLIC ACID 1 MG TABLET PO SCH (08:34)
[2022-04-26] MEDS: amLODIPine 5 MG TABLET PO SCH (08:34)
[2022-04-26] MEDS: ASPIRIN EC 81 MG TABLET PO SCH (08:34)
[2022-04-26] MEDS: THIAMINE 100 MG TABLET PO SCH (08:35)
[2022-04-26] MEDS: MEMANTINE 10 MG TABLET PO SCH (08:35)
[2022-04-26 11:16] VITALS: BP 114/71
== END 2022-04-26 15:00 | disposition swing bed (61) | DRG 421 ==
LOC: N.ED 18:50 → N.3E 04-16 00:23 → N.EDINP 04-16 00:50 → SUATTDRO 04-16 00:50 → N.3E 04-16 01:40
PROVIDERS: ADMIT Internal Medicine; ATTEND Internal Medicine
PROC: ERCPWSP (ICD-10-PCS; 2022-04-21 12:50)